=== PATIENT | male | born 1960 | race African-American/Black ===

== ENCOUNTER 2021-12-12 10:39 | Emergency (ER) | payer OTHER ==
[2021-12-12 10:49] VITALS: BP 149/83; PULSE 79; TEMP 97.9; BMI 27.3
[2021-12-12] MEDS ORDERED: VANCOMYCIN 1 GM in D5W (PRE-DOCKED) 1,000 MG/250 ML IVPB ONE (11:24)
[2021-12-12] MEDS ORDERED: MEROPENEM 1 GM in DEXTROSE 5%-WATER 100 ML IVPB ONE (11:24)
[2021-12-12] MEDS ORDERED: VANCOMYCIN 1 GRAM (PRE-DOCKED) 1,000 MG/250 ML BAG IVPB ONE (12:24)
[2021-12-12 13:26] LABS: BASO % 0.6 % (0-2.0); EOS % 3.3 % (0-4.5); HEMATOCRIT 37.7 % (35.4-49); HEMOGLOBIN 12.2 GM/dL (11.7-16.9); LYMPH % 13.8 % (8-40); MCH 29.8 pg (25.7-33.7); MCHC 32.3 g/dl (32.0-35.9); MEAN CELL VOLUME 92.3 fl (80-96); MEAN PLT VOLUME 8.4 fl (7.5-11.1); MONO % 13.4 % (3.8-10.2); NEUT % 68.9 % (42.8-82.8); PLATELET COUNT 208 10^3/uL (134-434); RBC 4.08 M/mm3 (4.00-5.60); WHITE BLOOD COUNT 4.9 K/mm3 (4.0-10.0)
[2021-12-12 13:46] LABS: CHLORIDE 114 mmol/L (98-107); SODIUM 139 mmol/L (136-145)
[2021-12-12 13:48] LABS: CALCIUM 8.7 mg/dL (8.5-10.1)
[2021-12-12 13:49] LABS: ALBUMIN 3.6 g/dl (3.4-5.0); BLOOD UREA NITROGEN 30.9 mg/dL (7-18); CO2 22 mmol/L (21-32); GLUCOSE,RANDOM 110 mg/dL (74-106)
[2021-12-12 13:52] LABS: SGOT/AST 46 U/L (15-37); SGPT/ALT 42 U/L (13-61)
[2021-12-12 13:54] LABS: BILIRUBIN,TOTAL 0.4 mg/dL (0.2-1); TOT PROT 7.9 g/dl (6.4-8.2)
[2021-12-12 13:55] LABS: ALK PHOS 67 U/L (45-117); ANION GAP 4 MMOL/L (8-16)
[2021-12-12 15:57] LABS: CALCIUM 8.9 mg/dL (8.5-10.1)
[2021-12-12 15:58] LABS: ALBUMIN 3.2 g/dl (3.4-5.0); BLOOD UREA NITROGEN 31.1 mg/dL (7-18)
[2021-12-12 16:01] LABS: CREATININE 1.8 mg/dL (0.55-1.3)
[2021-12-12 16:03] LABS: BILIRUBIN,TOTAL 0.2 mg/dL (0.2-1); TOT PROT 7.1 g/dl (6.4-8.2)
[2021-12-12] MEDS ORDERED: SODIUM ZIRCONIUM CYCLOSILICATE (LOKELMA) 5 GM PACKET PO ONE (16:12)
== END 2021-12-12 16:30 | disposition left against medical advice (07) ==
LOC: JER 10:39
PROC: 3E033GC Introduction of Other Therapeutic Substance into Peripheral Vein, Percutaneous Approach (ICD-10-PCS; principal; 2021-12-12)
DX: L08.89 Other specified local infections of the skin and subcutaneous tissue (principal); E87.5 Hyperkalemia; R79.89 Other specified abnormal findings of blood chemistry
CPT/HCPCS: 36415; 73630-TC-LT; 80053; 85025; 87040; 87070; 87186; 87205; 99284-25

== ENCOUNTER 2021-12-18 12:10 | Inpatient (IN) | payer OTHER ==
[2021-12-18] MEDS ORDERED: VANCOMYCIN 1 GM in D5W (PRE-DOCKED) 1,000 MG/250 ML IVPB ONE (13:25)
[2021-12-18] MEDS ORDERED: CEFEPIME HCL/D5W 2 GM/50 ML BAG IVPB ONE (13:26)
[2021-12-18] MEDS ORDERED: CEFEPIME 2 GM/100 ML BAG IVPB ONE (13:54)
[2021-12-18] MEDS ORDERED: VANCOMYCIN 1 GRAM (PRE-DOCKED) 1,000 MG/250 ML BAG IVPB ONE (13:55)
[2021-12-18 14:04] LABS: BASO % 0.6 % (0-2.0); EOS % 0.5 % (0-4.5); HEMATOCRIT 37.1 % (35.4-49); HEMOGLOBIN 12.3 GM/dL (11.7-16.9); LYMPH % 10.3 % (8-40); MCH 29.8 pg (25.7-33.7); MCHC 33.3 g/dl (32.0-35.9); MEAN CELL VOLUME 89.6 fl (80-96); MEAN PLT VOLUME 7.3 fl (7.5-11.1); MONO % 11.5 % (3.8-10.2); NEUT % 77.1 % (42.8-82.8); PLATELET COUNT 237 10^3/uL (134-434); RBC 4.14 M/mm3 (4.00-5.60); RDW 14.3 % (11.9-15.9); WHITE BLOOD COUNT 6.8 K/mm3 (4.0-10.0)
[2021-12-18 14:27] LABS: ALBUMIN 3.5 g/dl (3.4-5.0); BLOOD UREA NITROGEN 33.5 mg/dL (7-18); CALCIUM 9.3 mg/dL (8.5-10.1)
[2021-12-18 14:33] LABS: BILIRUBIN,TOTAL 0.3 mg/dL (0.2-1); TOT PROT 7.6 g/dl (6.4-8.2)
[2021-12-18] MEDS: INSULIN SLIDING SCALE (NOVOLOG) 1 VIAL SQ SCH (21:42)
[2021-12-19 00:52] VITALS: BMI 26.8
[2021-12-19] MEDS: INSULIN SLIDING SCALE (NOVOLOG) 1 VIAL SQ SCH ×4 (06:31→23:32)
[2021-12-19 08:34] LABS: HEMATOCRIT 34.2 % (35.4-49); HEMOGLOBIN 11.2 GM/dL (11.7-16.9); MCH 29.3 pg (25.7-33.7); MCHC 32.8 g/dl (32.0-35.9); MEAN CELL VOLUME 89.3 fl (80-96); MEAN PLT VOLUME 7.7 fl (7.5-11.1); PLATELET COUNT 245 10^3/uL (134-434); RBC 3.83 M/mm3 (4.00-5.60); RDW 13.9 % (11.9-15.9); WHITE BLOOD COUNT 4.8 K/mm3 (4.0-10.0)
[2021-12-19 08:50] LABS: MAGNESIUM 2.3 mg/dL (1.8-2.4)
[2021-12-19 08:54] LABS: CREATININE 1.9 mg/dL (0.55-1.3)
[2021-12-19] MEDS ORDERED: VANCOMYCIN 1 GM in D5W (PRE-DOCKED) 1,000 MG/250 ML IVPB ONE (10:00)
[2021-12-19] MEDS ORDERED: CEFEPIME HCL/D5W 1 GM/50 ML BAG IVPB SCH (10:00)
[2021-12-19 10:46] LABS: ERYTHROCYTE SEDIMENTATION RATE 91 mm/hr (0-20)
[2021-12-19] MEDS ORDERED: CEFEPIME HCL 1 GM VIAL (RESTRICTED TO ID) ONE (11:02)
[2021-12-19] MEDS ORDERED: DEXTROSE 5%-WATER 100 ML IVPB ONE ×2 (11:02→18:04)
[2021-12-19] MEDS ORDERED: VANCOMYCIN/WATER FOR INJ (PEG) 1,000 MG/200 ML BAG IVPB SCH (13:00)
[2021-12-19] MEDS: CEFEPIME 1 GM in DEXTROSE 5%-WATER 100 ML IVPB SCH ×2 (13:13→14:59)
[2021-12-19] MEDS: ENOXAPARIN NA (PORCINE) 40 MG/0.4 ML DISP.SYRIN SQ SCH (13:13)
[2021-12-19] MEDS ORDERED: VANCOMYCIN 1 GM/200 ML PREMIX BAG IVPB SCH (15:00)
[2021-12-19] MEDS ORDERED: CEFTRIAXONE 2 GM in DEXTROSE 5%-WATER 2 GM/50 ML BAG IVPB SCH (15:00)
[2021-12-19] MEDS: LISINOPRIL 5 MG TABLET PO SCH (18:15)
[2021-12-19] MEDS: CEFTRIAXONE 2 GM in DEXTROSE 5%-WATER 2 GM/100 ML BAG IVPB SCH (19:37)
[2021-12-19] MEDS: VANCOMYCIN 1 GM/200 ML PREMIX BAG IVPB SCH (23:23)
[2021-12-19] MEDS: ROSUVASTATIN CA 10 MG TABLET PO SCH (23:24)
[2021-12-20] MEDS: INSULIN SLIDING SCALE (NOVOLOG) 1 VIAL SQ SCH ×4 (06:42→21:11)
[2021-12-20] MEDS ORDERED: CEFTRIAXONE 1 GM in DEXTROSE 5%-WATER - 50 ML IVPB SCH (10:00)
[2021-12-20] MEDS ORDERED: DEXTROSE 5%-WATER 100 ML IVPB ONE (10:17)
[2021-12-20] MEDS: LISINOPRIL 5 MG TABLET PO SCH (10:47)
[2021-12-20] MEDS: CEFTRIAXONE 2 GM in DEXTROSE 5%-WATER 2 GM/100 ML BAG IVPB SCH (10:48)
[2021-12-20] MEDS: ENOXAPARIN NA (PORCINE) 40 MG/0.4 ML DISP.SYRIN SQ SCH (10:56)
[2021-12-20 12:46] LABS: BASO % 0.9 % (0-2.0); EOS % 3.7 % (0-4.5); HEMATOCRIT 36.6 % (35.4-49); HEMOGLOBIN 11.8 GM/dL (11.7-16.9); LYMPH % 16.3 % (8-40); MCH 29.2 pg (25.7-33.7); MCHC 32.3 g/dl (32.0-35.9); MEAN CELL VOLUME 90.6 fl (80-96); MEAN PLT VOLUME 7.7 fl (7.5-11.1); MONO % 14.8 % (3.8-10.2); NEUT % 64.3 % (42.8-82.8); PLATELET COUNT 258 10^3/uL (134-434); RBC 4.04 M/mm3 (4.00-5.60); RDW 13.9 % (11.9-15.9); WHITE BLOOD COUNT 4.3 K/mm3 (4.0-10.0)
[2021-12-20 13:03] LABS: BLOOD UREA NITROGEN 32.7 mg/dL (7-18); CALCIUM 9.4 mg/dL (8.5-10.1)
[2021-12-20 13:07] LABS: CREATININE 1.9 mg/dL (0.55-1.3)
[2021-12-20] MEDS: SODIUM ZIRCONIUM CYCLOSILICATE (LOKELMA) 5 GM PACKET PO SCH (14:57)
[2021-12-20] MEDS: VANCOMYCIN 1 GM/200 ML PREMIX BAG IVPB SCH (21:02)
[2021-12-20] MEDS: ROSUVASTATIN CA 10 MG TABLET PO SCH (21:02)
[2021-12-20] MEDS: ACETAMINOPHEN 500 MG TABLET (FP) PO PRN (21:02)
[2021-12-21] MEDS: INSULIN SLIDING SCALE (NOVOLOG) 1 VIAL SQ SCH ×4 (06:24→21:26)
[2021-12-21] MEDS ORDERED: DEXTROSE 5%-WATER 100 ML IVPB ONE (09:38)
[2021-12-21] MEDS: LISINOPRIL 5 MG TABLET PO SCH (09:42)
[2021-12-21] MEDS: CEFTRIAXONE 2 GM in DEXTROSE 5%-WATER 2 GM/100 ML BAG IVPB SCH (09:42)
[2021-12-21] MEDS: ENOXAPARIN NA (PORCINE) 40 MG/0.4 ML DISP.SYRIN SQ SCH (09:43)
[2021-12-21] MEDS: SODIUM ZIRCONIUM CYCLOSILICATE (LOKELMA) 5 GM PACKET PO SCH ×3 (09:43→13:24)
[2021-12-21 10:46] LABS: BASO % 0.7 % (0-2.0); HEMATOCRIT 37.3 % (35.4-49); HEMOGLOBIN 12.1 GM/dL (11.7-16.9); LYMPH % 22.9 % (8-40); MCH 29.3 pg (25.7-33.7); MCHC 32.6 g/dl (32.0-35.9); MEAN CELL VOLUME 90.1 fl (80-96); MEAN PLT VOLUME 7.6 fl (7.5-11.1); MONO % 14.5 % (3.8-10.2); NEUT % 57.9 % (42.8-82.8); PLATELET COUNT 262 10^3/uL (134-434); RBC 4.14 M/mm3 (4.00-5.60); RDW 13.8 % (11.9-15.9); WHITE BLOOD COUNT 3.1 K/mm3 (4.0-10.0)
[2021-12-21 11:26] LABS: BLOOD UREA NITROGEN 29.4 mg/dL (7-18); CALCIUM 9.2 mg/dL (8.5-10.1); CREATININE 1.9 mg/dL (0.55-1.3)
[2021-12-21] MEDS: ROSUVASTATIN CA 10 MG TABLET PO SCH (21:27)
[2021-12-21] MEDS: VANCOMYCIN 1 GM/200 ML PREMIX BAG IVPB SCH (21:27)
[2021-12-21] MEDS: ACETAMINOPHEN 500 MG TABLET (FP) PO PRN (22:43)
[2021-12-22] MEDS: INSULIN SLIDING SCALE (NOVOLOG) 1 VIAL SQ SCH ×4 (06:25→21:52)
[2021-12-22] MEDS ORDERED: DEXTROSE 5%-WATER 100 ML IVPB ONE (09:24)
[2021-12-22] MEDS: LISINOPRIL 5 MG TABLET PO SCH (09:36)
[2021-12-22] MEDS: ENOXAPARIN NA (PORCINE) 40 MG/0.4 ML DISP.SYRIN SQ SCH (09:36)
[2021-12-22] MEDS: CEFTRIAXONE 2 GM in DEXTROSE 5%-WATER 2 GM/100 ML BAG IVPB SCH (09:37)
[2021-12-22 11:18] LABS: BASO % 0.9 % (0-2.0); EOS % 2.5 % (0-4.5); HEMOGLOBIN 12.3 GM/dL (11.7-16.9); LYMPH % 17.5 % (8-40); MCH 29.9 pg (25.7-33.7); MCHC 33.3 g/dl (32.0-35.9); MEAN CELL VOLUME 89.7 fl (80-96); MEAN PLT VOLUME 6.9 fl (7.5-11.1); MONO % 10.5 % (3.8-10.2); NEUT % 68.6 % (42.8-82.8); PLATELET COUNT 247 10^3/uL (134-434); RBC 4.12 M/mm3 (4.00-5.60); RDW 13.9 % (11.9-15.9)
[2021-12-22 11:42] LABS: BLOOD UREA NITROGEN 30.2 mg/dL (7-18)
[2021-12-22 11:43] LABS: CREATININE 1.9 mg/dL (0.55-1.3)
[2021-12-22] MEDS: SODIUM ZIRCONIUM CYCLOSILICATE (LOKELMA) 5 GM PACKET PO SCH (13:00)
[2021-12-22] MEDS: VANCOMYCIN 1 GM/200 ML PREMIX BAG IVPB SCH (20:32)
[2021-12-22] MEDS: ROSUVASTATIN CA 10 MG TABLET PO SCH (21:53)
[2021-12-23] MEDS: INSULIN SLIDING SCALE (NOVOLOG) 1 VIAL SQ SCH ×4 (06:23→21:27)
[2021-12-23 10:29] LABS: EOS % 2.6 % (0-4.5); HEMATOCRIT 40.9 % (35.4-49); HEMOGLOBIN 13.5 GM/dL (11.7-16.9); LYMPH % 26.6 % (8-40); MCH 29.9 pg (25.7-33.7); MCHC 32.9 g/dl (32.0-35.9); MEAN CELL VOLUME 90.9 fl (80-96); MEAN PLT VOLUME 7.3 fl (7.5-11.1); MONO % 9.6 % (3.8-10.2); NEUT % 60.2 % (42.8-82.8); PLATELET COUNT 302 10^3/uL (134-434); RBC 4.51 M/mm3 (4.00-5.60); RDW 13.8 % (11.9-15.9); WHITE BLOOD COUNT 3.9 K/mm3 (4.0-10.0)
[2021-12-23] MEDS ORDERED: DEXTROSE 5%-WATER 100 ML IVPB ONE (10:37)
[2021-12-23 10:41] LABS: CALCIUM 9.3 mg/dL (8.5-10.1)
[2021-12-23 10:42] LABS: ALBUMIN 3.6 g/dl (3.4-5.0); BLOOD UREA NITROGEN 28.5 mg/dL (7-18); MAGNESIUM 2.4 mg/dL (1.8-2.4)
[2021-12-23 10:45] LABS: PHOSPHOROUS 3.5 mg/dL (2.5-4.9)
[2021-12-23 10:46] LABS: BILIRUBIN,TOTAL 0.2 mg/dL (0.2-1); TOT PROT 8.2 g/dl (6.4-8.2)
[2021-12-23] MEDS: CEFTRIAXONE 2 GM in DEXTROSE 5%-WATER 2 GM/100 ML BAG IVPB SCH (10:46)
[2021-12-23] MEDS: LISINOPRIL 5 MG TABLET PO SCH (10:46)
[2021-12-23] MEDS: ENOXAPARIN NA (PORCINE) 40 MG/0.4 ML DISP.SYRIN SQ SCH (10:46)
[2021-12-23] MEDS: SODIUM ZIRCONIUM CYCLOSILICATE (LOKELMA) 5 GM PACKET PO SCH (12:09)
[2021-12-23] MEDS: POLYETHYLENE GLYCOL (HEALTHYLAX) 3350 17 GM PACKET PO SCH ×2 (14:56→21:27)
[2021-12-23] MEDS: VANCOMYCIN 1 GM/200 ML PREMIX BAG IVPB SCH (20:12)
[2021-12-23] MEDS: ROSUVASTATIN CA 10 MG TABLET PO SCH (21:27)
[2021-12-23] MEDS ORDERED: DOCUSATE SODIUM 100 MG CAPSULE (FP) PO SCH (22:00)
[2021-12-24] MEDS: INSULIN SLIDING SCALE (NOVOLOG) 1 VIAL SQ SCH ×3 (06:04→16:34)
[2021-12-24] MEDS ORDERED: DEXTROSE 5%-WATER 100 ML IVPB ONE (09:43)
[2021-12-24] MEDS: CEFTRIAXONE 2 GM in DEXTROSE 5%-WATER 2 GM/100 ML BAG IVPB SCH (10:15)
[2021-12-24] MEDS: POLYETHYLENE GLYCOL (HEALTHYLAX) 3350 17 GM PACKET PO SCH (10:16)
[2021-12-24] MEDS: ENOXAPARIN NA (PORCINE) 40 MG/0.4 ML DISP.SYRIN SQ SCH (10:16)
[2021-12-24] MEDS: LISINOPRIL 5 MG TABLET PO SCH (10:16)
[2021-12-24 12:19] LABS: CALCIUM 9.2 mg/dL (8.5-10.1)
[2021-12-24 12:20] LABS: BLOOD UREA NITROGEN 26.6 mg/dL (7-18)
[2021-12-24 12:23] LABS: CREATININE 1.8 mg/dL (0.55-1.3)
[2021-12-24 15:33] VITALS: BP 103/70; PULSE 74; TEMP 98.4
== END 2021-12-24 17:28 | disposition home or self-care (01) | DRG 344 ==
LOC: JER 12:10 → JERBED 13:44 → J5S 23:11
PROVIDERS: ADMIT Hospitalist; ATTEND Internal Medicine
PROC: 0H9NXZX Drainage of Left Foot Skin, External Approach, Diagnostic (ICD-10-PCS; principal; 2021-12-19)
DX: E11.69 Type 2 diabetes mellitus with other specified complication (principal); M86.9 Osteomyelitis, unspecified; N17.9 Acute kidney failure, unspecified; E11.621 Type 2 diabetes mellitus with foot ulcer; N18.9 Chronic kidney disease, unspecified; E11.22 Type 2 diabetes mellitus with diabetic chronic kidney disease; E87.5 Hyperkalemia; L08.9 Local infection of the skin and subcutaneous tissue, unspecified
CPT/HCPCS: 36415; 73630-TC-LT; 73718-TC-LT; 80048; 80053; 80307; 82962; 83036; 83735; 84100; 84443; 85025; 85027; 85651; 86140; 87040; 87070; 87186; 87205; 93005; 93010; 93971-TC; 99285-25; C9803-CS; G0480; U0003; U0005

== ENCOUNTER 2021-12-25 11:03 | Day surgery (SDC) | payer OTHER ==
[2021-12-25] MEDS ORDERED: DALBAVANCIN HCL 1,500 MG in DEXTROSE 5%-WATER - 500 ML IVPB ONE (12:00)
[2021-12-25 12:07] VITALS: BP 126/75; PULSE 72; TEMP 98
== END 2021-12-25 13:45 | disposition home or self-care (01) ==
LOC: FINFUSION 11:03 → FM/S 11:05 → FINFUSION 13:45
PROVIDERS: ATTEND Internal Medicine
DX: M86.9 Osteomyelitis, unspecified (principal); E11.22 Type 2 diabetes mellitus with diabetic chronic kidney disease; E11.628 Type 2 diabetes mellitus with other skin complications; N18.9 Chronic kidney disease, unspecified; Z88.1 Allergy status to other antibiotic agents; Z86.14 Personal history of Methicillin resistant Staphylococcus aureus infection
CPT/HCPCS: 96365; J0875

== ENCOUNTER 2022-01-01 11:06 | Day surgery (SDC) | payer OTHER ==
[2022-01-01 11:37] VITALS: TEMP 98.5
[2022-01-01] MEDS ORDERED: DALBAVANCIN HCL 1,500 MG in DEXTROSE 5%-WATER - 500 ML IVPB ONE (12:00)
[2022-01-01 12:54] VITALS: BP 139/82; PULSE 58
== END 2022-01-01 13:00 | disposition home or self-care (01) ==
LOC: FINFUSION 11:06 → FM/S 11:07 → FINFUSION 13:00
PROVIDERS: ATTEND Internal Medicine
DX: M86.9 Osteomyelitis, unspecified (principal); E11.22 Type 2 diabetes mellitus with diabetic chronic kidney disease; E11.628 Type 2 diabetes mellitus with other skin complications; N18.9 Chronic kidney disease, unspecified; Z88.1 Allergy status to other antibiotic agents; Z86.14 Personal history of Methicillin resistant Staphylococcus aureus infection
CPT/HCPCS: 96365; J0875

== ENCOUNTER 2022-03-18 07:48 | Emergency (ER) | payer OTHER ==
[2022-03-18 08:06] VITALS: BP 122/76; PULSE 67; RESP 18; TEMP 97; BMI 27.3
[2022-03-18 09:25] LABS: BASO % 0.9 % (0-2.0); EOS % 3.2 % (0-4.5); HEMATOCRIT 40.7 % (35.4-49); HEMOGLOBIN 13.2 GM/dL (11.7-16.9); LYMPH % 30.8 % (8-40); MCH 29.2 pg (25.7-33.7); MCHC 32.6 g/dl (32.0-35.9); MEAN CELL VOLUME 89.7 fl (80-96); MEAN PLT VOLUME 7.7 fl (7.5-11.1); NEUT % 52.1 % (42.8-82.8); PLATELET COUNT 188 10^3/uL (134-434); RBC 4.53 M/mm3 (4.00-5.60); RDW 16.6 % (11.9-15.9); WHITE BLOOD COUNT 2.9 K/mm3 (4.0-10.0)
[2022-03-18 09:30] LABS: INR 0.95 (0.83-1.09); PROTHROMBIN TIME (PATIENT) 10.9 SEC (9.7-13.0)
[2022-03-18 09:32] LABS: ACTIVATED PTT 33.4 SECONDS (25.2-36.5)
[2022-03-18 09:49] LABS: CALCIUM 9.4 mg/dL (8.5-10.1)
[2022-03-18 09:50] LABS: ALBUMIN 3.9 g/dl (3.4-5.0); BLOOD UREA NITROGEN 33.2 mg/dL (7-18)
[2022-03-18 09:53] LABS: CREATININE 2.3 mg/dL (0.55-1.3)
[2022-03-18 09:54] LABS: BILIRUBIN,TOTAL 0.4 mg/dL (0.2-1); TOT PROT 7.9 g/dl (6.4-8.2)
== END 2022-03-18 11:45 | disposition home or self-care (01) ==
LOC: JER 07:48
DX: E11.628 Type 2 diabetes mellitus with other skin complications (principal); L08.9 Local infection of the skin and subcutaneous tissue, unspecified
CPT/HCPCS: 36415; 73630-TC-RT-FY; 80053; 85025; 85610; 85730; 86850; 86900; 86901; 99284-25

== ENCOUNTER 2023-01-04 13:06 | Inpatient (IN) | payer OTHER ==
[2023-01-04 13:24] VITALS: BMI 27.5
[2023-01-04] MEDS ORDERED: VANCOMYCIN 1 GM in D5W (PRE-DOCKED) 1,000 MG/250 ML (RESTRICTED TO ID ONLY IVPB ONE (14:16)
[2023-01-04] MEDS ORDERED: CEFEPIME HCL/D5W 2 GM/50 ML BAG IVPB ONE (14:17)
[2023-01-04] MEDS ORDERED: VANCOMYCIN/WATER FOR INJ (PEG) 1,000 MG/200 ML BAG IVPB ONE (14:49)
[2023-01-04 14:56] LABS: BASO % 0.8 % (0-2.0); EOS % 1.6 % (0-4.5); HEMATOCRIT 40.3 % (35.4-49); HEMOGLOBIN 13.6 GM/dL (11.7-16.9); LYMPH % 23.9 % (8-40); MCH 29.7 pg (25.7-33.7); MCHC 33.8 g/dl (32.0-35.9); MEAN PLT VOLUME 8.1 fl (7.5-11.1); MONO % 17.6 % (3.8-10.2); NEUT % 56.1 % (42.8-82.8); PLATELET COUNT 187 10^3/uL (134-434); RBC 4.57 M/mm3 (4.00-5.60); RDW 15.6 % (11.9-15.9); WHITE BLOOD COUNT 3.5 K/mm3 (4.0-10.0)
[2023-01-04 15:10] LABS: CHLORIDE 106 mmol/L (98-107); SODIUM 133 mmol/L (136-145)
[2023-01-04 15:12] LABS: CALCIUM 8.8 mg/dL (8.5-10.1)
[2023-01-04 15:13] LABS: ALBUMIN 3.4 g/dl (3.4-5.0); BLOOD UREA NITROGEN 42.2 mg/dL (7-18); CO2 24 mmol/L (21-32); GLUCOSE,RANDOM 146 mg/dL (74-106)
[2023-01-04 15:18] LABS: BILIRUBIN,TOTAL 0.4 mg/dL (0.2-1); TOT PROT 8.1 g/dl (6.4-8.2)
[2023-01-04 15:19] LABS: ALK PHOS 60 U/L (45-117)
[2023-01-04] MEDS ORDERED: CEFEPIME 2 GM/100 ML BAG IVPB ONE ×2 (15:21→22:10)
[2023-01-04 15:23] LABS: ANION GAP 3 MMOL/L (8-16); POTASSIUM 8.9 mmol/L (3.5-5.1); SGOT/AST 84 U/L (15-37); SGPT/ALT 48 U/L (13-61)
[2023-01-04 15:36] LABS: ERYTHROCYTE SEDIMENTATION RATE 38 mm/hr (0-20)
[2023-01-04 18:18] LABS: POTASSIUM 4.4 mmol/L (3.5-5.1)
[2023-01-04 18:19] LABS: CALCIUM 8.6 mg/dL (8.5-10.1)
[2023-01-04 18:20] LABS: BLOOD UREA NITROGEN 44.1 mg/dL (7-18)
[2023-01-04] MEDS ORDERED: LIDOCAINE HCL 2% (20ML MULTI-DOSE VIAL) ONE (21:36)
[2023-01-04] MEDS ORDERED: CEFEPIME 2 GM in DEXTROSE 5%-WATER 100 ML IVPB SCH (22:00)
[2023-01-04] MEDS ORDERED: ROSUVASTATIN CA 20 MG TABLET ONE (22:10)
[2023-01-04] MEDS: CEFEPIME 2 GM in DEXTROSE 5%-WATER 100 ML IVPB SCH (23:04)
[2023-01-04] MEDS: ROSUVASTATIN CA 10 MG TABLET PO SCH (23:04)
[2023-01-05] MEDS: INSULIN SLIDING SCALE (NOVOLOG) 1 VIAL SQ SCH ×3 (06:28→17:34)
[2023-01-05] MEDS: CEFEPIME 2 GM in DEXTROSE 5%-WATER 100 ML IVPB SCH ×2 (09:54→22:02)
[2023-01-05] MEDS ORDERED: VANCOMYCIN 1 GM/200 ML PREMIX BAG (RESTRICTED TO ID ONLY) IVPB SCH (10:00)
[2023-01-05 10:45] LABS: BASO % 0.9 % (0-2.0); EOS % 1.7 % (0-4.5); HEMATOCRIT 41.1 % (35.4-49); LYMPH % 19.4 % (8-40); MCH 29.9 pg (25.7-33.7); MEAN CELL VOLUME 88.1 fl (80-96); MEAN PLT VOLUME 8.2 fl (7.5-11.1); MONO % 16.8 % (3.8-10.2); NEUT % 61.2 % (42.8-82.8); PLATELET COUNT 203 10^3/uL (134-434); RBC 4.67 M/mm3 (4.00-5.60); RDW 15.1 % (11.9-15.9); WHITE BLOOD COUNT 3.3 K/mm3 (4.0-10.0)
[2023-01-05] MEDS: VANCOMYCIN 1 GM/200 ML PREMIX BAG (RESTRICTED TO ID ONLY) IVPB SCH (10:50)
[2023-01-05 11:04] LABS: POTASSIUM 5.3 mmol/L (3.5-5.1)
[2023-01-05 11:07] LABS: CALCIUM 9.7 mg/dL (8.5-10.1)
[2023-01-05 11:08] LABS: BLOOD UREA NITROGEN 36.7 mg/dL (7-18)
[2023-01-05] MEDS: SODIUM ZIRCONIUM CYCLOSILICATE (LOKELMA) 5 GM PACKET PO SCH (22:01)
[2023-01-05] MEDS: ROSUVASTATIN CA 10 MG TABLET PO SCH (22:02)
[2023-01-06] MEDS: INSULIN SLIDING SCALE (NOVOLOG) 1 VIAL SQ SCH ×3 (06:18→17:53)
[2023-01-06 09:01] LABS: BASO % 0.8 % (0-2.0); EOS % 1.6 % (0-4.5); HEMATOCRIT 43.2 % (35.4-49); HEMOGLOBIN 14.8 GM/dL (11.7-16.9); LYMPH % 25.8 % (8-40); MCH 30.2 pg (25.7-33.7); MCHC 34.3 g/dl (32.0-35.9); MEAN CELL VOLUME 88.1 fl (80-96); MEAN PLT VOLUME 7.7 fl (7.5-11.1); MONO % 18.2 % (3.8-10.2); NEUT % 53.6 % (42.8-82.8); PLATELET COUNT 212 10^3/uL (134-434); RBC 4.91 M/mm3 (4.00-5.60); RDW 15.1 % (11.9-15.9); WHITE BLOOD COUNT 3.6 K/mm3 (4.0-10.0)
[2023-01-06 09:14] LABS: ALBUMIN 3.8 g/dl (3.4-5.0); BLOOD UREA NITROGEN 32.1 mg/dL (7-18); CALCIUM 9.8 mg/dL (8.5-10.1)
[2023-01-06 09:18] LABS: BILIRUBIN,TOTAL 0.7 mg/dL (0.2-1)
[2023-01-06] MEDS: CEFEPIME 2 GM in DEXTROSE 5%-WATER 100 ML IVPB SCH ×2 (10:20→22:36)
[2023-01-06] MEDS: SODIUM ZIRCONIUM CYCLOSILICATE (LOKELMA) 5 GM PACKET PO SCH (10:20)
[2023-01-06] MEDS: VANCOMYCIN 1 GM/200 ML PREMIX BAG (RESTRICTED TO ID ONLY) IVPB SCH (12:02)
[2023-01-06] MEDS ORDERED: INSULIN (NOVOLOG) ASPART 100 UNITS/ML 10ML VIAL ONE (12:29)
[2023-01-06] MEDS: HEPARIN NA (PORCINE) 5,000 UNITS/ML 1ML VIAL SQ SCH (22:31)
[2023-01-06] MEDS: ROSUVASTATIN CA 10 MG TABLET PO SCH (22:31)
[2023-01-07] MEDS: INSULIN SLIDING SCALE (NOVOLOG) 1 VIAL SQ SCH ×3 (06:49→17:03)
[2023-01-07] MEDS: CEFEPIME 2 GM in DEXTROSE 5%-WATER 100 ML IVPB SCH (09:57)
[2023-01-07] MEDS: HEPARIN NA (PORCINE) 5,000 UNITS/ML 1ML VIAL SQ SCH ×2 (09:57→21:40)
[2023-01-07] MEDS: SODIUM ZIRCONIUM CYCLOSILICATE (LOKELMA) 5 GM PACKET PO SCH (10:08)
[2023-01-07] MEDS: VANCOMYCIN 1 GM/200 ML PREMIX BAG (RESTRICTED TO ID ONLY) IVPB SCH (11:26)
[2023-01-07 12:08] LABS: BASO % 0.9 % (0-2.0); EOS % 1.3 % (0-4.5); HEMATOCRIT 41.8 % (35.4-49); HEMOGLOBIN 14.4 GM/dL (11.7-16.9); LYMPH % 27.5 % (8-40); MCH 30.5 pg (25.7-33.7); MCHC 34.5 g/dl (32.0-35.9); MEAN CELL VOLUME 88.4 fl (80-96); MEAN PLT VOLUME 8.2 fl (7.5-11.1); MONO % 12.6 % (3.8-10.2); NEUT % 57.7 % (42.8-82.8); PLATELET COUNT 197 10^3/uL (134-434); RBC 4.72 M/mm3 (4.00-5.60); WHITE BLOOD COUNT 3.3 K/mm3 (4.0-10.0)
[2023-01-07] MEDS ORDERED: INSULIN (NOVOLOG) ASPART 100 UNITS/ML 10ML VIAL ONE ×2 (12:15→21:27)
[2023-01-07 12:26] LABS: CALCIUM 9.2 mg/dL (8.5-10.1)
[2023-01-07 12:27] LABS: ALBUMIN 3.6 g/dl (3.4-5.0); BLOOD UREA NITROGEN 32.5 mg/dL (7-18); MAGNESIUM 2.3 mg/dL (1.8-2.4)
[2023-01-07 12:30] LABS: CREATININE 1.9 mg/dL (0.55-1.3)
[2023-01-07 12:31] LABS: BILIRUBIN,TOTAL 0.5 mg/dL (0.2-1)
[2023-01-07 12:32] LABS: TOT PROT 7.7 g/dl (6.4-8.2)
[2023-01-07] MEDS: AMOX TR/POT CLAV 875MG/125MG TABLETS (FP) PO SCH (17:20)
[2023-01-07] MEDS: ROSUVASTATIN CA 10 MG TABLET PO SCH (21:39)
[2023-01-07 23:44] VITALS: RESP 20
[2023-01-08] MEDS: INSULIN SLIDING SCALE (NOVOLOG) 1 VIAL SQ SCH (07:48)
[2023-01-08] MEDS: AMOX TR/POT CLAV 875MG/125MG TABLETS (FP) PO SCH (09:53)
[2023-01-08] MEDS: HEPARIN NA (PORCINE) 5,000 UNITS/ML 1ML VIAL SQ SCH (09:53)
[2023-01-08] MEDS: SODIUM ZIRCONIUM CYCLOSILICATE (LOKELMA) 5 GM PACKET PO SCH (09:53)
[2023-01-08 10:43] VITALS: BP 127/54; PULSE 78; TEMP 97.4
== END 2023-01-08 10:45 | disposition home or self-care (01) | DRG 638 ==
LOC: JER 13:06 → JERBED 17:42 → J8W 01-05 00:38
PROVIDERS: ADMIT Internal Medicine; ATTEND Nurse Practitioner Acute Care
DX: E11.621 Type 2 diabetes mellitus with foot ulcer (principal); L03.115 Cellulitis of right lower limb; L97.518 Non-pressure chronic ulcer of other part of right foot with other specified severity; I12.9 Hypertensive chronic kidney disease with stage 1 through stage 4 chronic kidney disease, or unspecified chronic kidney disease; E11.22 Type 2 diabetes mellitus with diabetic chronic kidney disease; N18.30 Chronic kidney disease, stage 3 unspecified; E78.5 Hyperlipidemia, unspecified; E11.51 Type 2 diabetes mellitus with diabetic peripheral angiopathy without gangrene; E87.5 Hyperkalemia; B96.89 Other specified bacterial agents as the cause of diseases classified elsewhere; B95.2 Enterococcus as the cause of diseases classified elsewhere; Z89.421 Acquired absence of other right toe(s); Z88.1 Allergy status to other antibiotic agents
CPT/HCPCS: 36415; 73630-TC-RT-FY; 73718-TC-RT; 80048; 80053; 82962; 83735; 85025; 85651; 86140; 87070; 87076; 87186; 87205; 93005; 93010; 99285-25; C9803-CS; J1644; U0003; U0005